=== PATIENT | male | born 1935 | race Caucasian/White ===

== ENCOUNTER 2019-08-10 10:11 | Inpatient (IN) ==
[2019-08-10] MEDS ORDERED: MORPHINE SULFATE 2 MG/ML DISP.SYRIN IV ONE (10:22)
[2019-08-10 10:46] LABS: Hematocrit 35.3 % (42.0-52.0); Hemoglobin 12.2 gm/dL (13.5-18.0); Mean Cell Volume 94.4 fl (78-100); Mean Corpuscular Hemoglobin 32.6 pg (27-31); Mean Corpuscular Hgb Conc 34.6 g/dl (32-36); Mean Platelet Volume 8.7 fl (8-11.3); Neutrophil # 5.9 K/mm3 (1.3-6.0); Neutrophil % 74.6 % (42-75.0); Platelet Count 171 K/mm3 (150-450); Red Blood Count 3.74 M/mm3 (4.7-6.0); Red Cell Distribution Width 12.7 % (11.5-14.0)
[2019-08-10 10:57] LABS: Prothrombin Time (Patient) 10.2 Seconds (9.1-10.7)
[2019-08-10 11:00] LABS: Albumin * 3.5 gm/dl (3.4-5.0); Anion Gap 10.3 mmol/L (6.8-13.8); BUN/Creatinine Ratio 8.4 (9.0-21.6); Bilirubin, Total 0.6 mg/dL (0.0-1.1); Ca. Corrected For Albumin 8.7 mg/dL (8.4-10.2); Calcium * 8.6 mg/dL (7.9-10.9); Carbon Dioxide 28.1 mmol/L (24-32.6); Potassium 4.4 mmol/L (3.4-4.6); Total Protein 6.8 gm/dL (6.2-8.2)
[2019-08-10 11:01] LABS: INR 1.03 INR (0.92-1.08); Partial Thrombolplastin Time 23.1 Seconds (24-32)
[2019-08-10 11:24] LABS: Urine Bilirubin Negative (NEGATIVE); Urine Blood Negative /ul (NEGATIVE); Urine Ketone Negative (NEGATIVE); Urine Nitrite Negative (NEGATIVE); Urine Protein Negative (NEGATIVE); Urine Urobilinogen Normal (NORMAL)
--- NOTE | 2019-08-10 11:26 | ERNOTE ---
Lower Extremity HPI - Narrative Date of Service: 08/10/19 - General Lower Extremities Pain: hip: left Time Seen by Provider: 08/10/19 10:13 Source: patient, EMS Exam Limitations: hard of hearing - Immun/Allergies/Home Medications Immunizations: IMMUNIZATION HX Immunizations Up to Date No History of Influenza Vaccine Yes Hx Pneumococcal Vaccination Yes Allergies/Adverse Reactions: Allergies Allergy/AdvReac Type Severity Reaction Status Date / Time No Known Allergies Allergy Unverified 08/10/19 10:28 Home Medications: HOME MEDICATIONS Calcium Carb/Vitamin D3/Vit K1 [Calcium-Vit D3-K1 650 mg Chew] 1 ea PO DAILY 08/10/19 [Last Taken Unknown] Lisinopril [Zestril] 10 mg PO DAILY 08/10/19 [Last Taken Unknown] Simvastatin 40 mg PO HS 08/10/19 [Last Taken Unknown] - History of Present Illness Narrative: patient present to ed with c/o left hip pain, tripped over curb unable to ambulate Occurred: just prior to arrival Location of Incident: other - street Method of Injury: Reports: fell, direct blow Reason for Fall: Reports: lost balance, tripped Loss of Consciousness: Reports: no loss of consciousness Review of Systems - Review of Systems Constitutional: Present: See HPI EYE: Present: no symptoms reported ENT: Present: no symptoms reported Respiratory: Present: no symptoms reported Cardiology: Present: no symptoms reported Gastrointestinal/Abdominal: Present: no symptoms reported Genitourinary: Present: no symptoms reported Musculoskeletal: Present: See HPI, joint pain, joint swelling Skin: Present: no symptoms reported Neurological: Present: no symptoms reported Endocrine: Present: no symptoms reported Hematologic/Lymphatic: Present: no symptoms reported Psych: Present: no symptoms reported All Other Systems: All systems neg except as marked Medical History (Last Updated 08/10/19 @ 10:38 by Mitul Mcguire RN) CKD (chronic kidney disease) GERD (gastroesophageal reflux disease) HTN (hypertension) Hyperlipemia Osteoporosis Paralysis of right hand Surgical History: Surgical History (Last Updated 08/10/19 @ 10:37 by Mitul Mcguire RN) H/O foot surgery "broke it years ago" Family History: Family History (Last Updated 08/10/19 @ 10:46 by Mitul Mcguire RN) Other Family history unobtainable Social History: (Last Updated 08/10/19 @ 10:39 by Mitul Mcguire RN) Tobacco: Smoking Status: Former smoker Alcohol: alcohol intake: never Substance Use: substance use type: does not use Physical Exam - Physical Exam General Appearance: Present: moderate distress, anxious Head Exam: Present: normal inspection, no evidence of injury Eye Exam: Normal inspection: bilateral, PERRL: bilateral, EOMI: bilateral Ears, Nose, Throat: Present: normal ENT inspection, normal pharynx Neck: Present: normal inspection, nontender Respiratory: Present: no respiratory distress, normal breath sounds, no accessory muscle use, chest nontender, lungs clear Cardiovascular/Chest: Present: regular rate, rhythm, no murmur, normal peripheral pulses Gastrointestinal/Abdominal: Present: normal bowel sounds, nontender, nondistended, soft, no organomegaly Back Exam: Present: normal inspection, normal range of motion, no CVA tenderness Extremity Exam: Present: normal except -, decreased range of motion, bony tenderness, other - pain over greater trochanter Neurological Exam: Present: alert, oriented, normal mood/affect, no motor/sensory deficits Skin Exam: Present: normal color, warm/dry Lymphatic Exam: Present: no adenopathy Progress - Date and Time Seen: Date and Time: 08/10/19 11:23 condition unchanged, discussed results of lab and x-rays with patient and , case discussed with dr vale, to admit to hospital - Results and Orders Patient's Lab Results:: I have reviewed the patient's lab results. - Vital Signs Patient's Vital Signs:: I have reviewed the patient's vital signs. Vital Signs: Vital Signs 08/10/19 10:11 08/10/19 10:27 Temperature 37.0 C Pulse Rate 79 88 Respiratory Rate 17 Blood Pressure 179/79 H O2 Sat by Pulse Oximetry 95 - EKG EKG #1 EKG: NSR - X-Ray X-Ray #1 X-Ray: chest Interpretation: Interp. by me - no acute process, left hip fracture - Progress/Reassessment Chief Complaint: Hip Pain/Injury Progress:: Unchanged Plan - Plan Plan: to admit to hospital Departure Clinical Impression: Hip fracture - Departure Disposition: Short Term Hospital Inpatient Condition: Fair Referrals: Yanelis Grove APN [Primary Care Provider] -
[2019-08-10 11:39] LABS: Urine Appearance Clear (CLEAR); Urine Bacteria TRACE; Urine Color Pale Yellow; Urine RBC None Seen /hpf (0-5); Urine WBC None Seen /hpf (0-5)
[2019-08-10 11:40] LABS: Urine Amorphous Sediment Moderate - 2+ (NONE-FEW)
[2019-08-10] MEDS: NORMAL SALINE 1,000 ML IV PRN ×2 (11:42→19:19)
[2019-08-10] MEDS: MORPHINE SULFATE 2 MG/ML DISP.SYRIN IV PRN ×2 (11:43→19:17)
--- NOTE | 2019-08-10 15:42 | CONS ---
[facility] - General Date of Service: 08/10/19 Narrative: Patient is hard of hearing and most of information was given by his . Patient states that they had recently parked the car when he got out he had tripped and fallen. He reported pain in the left hip and presented to our emergency department. X-rays obtained showed a displaced left subcapital hip fracture. He is admitted under Dr. Patel's service. At this time patient reports discomfort in the inguinal area on the left side. They report no other injuries. - History of Present Illness Timing/Duration: 4-6 hours Allergies/Adverse Reactions: Allergies No Known Allergies Allergy (Verified 08/10/19 13:40) Home Medications: Home Medications Medication Instructions Recorded Last Taken Calcium Carb/Vitamin D3/Vit K1 1 ea PO DAILY 08/10/19 Unknown [Calcium-Vit D3-K1 650 mg Chew] Lisinopril [Zestril] 10 mg PO DAILY 08/10/19 Unknown Simvastatin 40 mg PO HS 08/10/19 Unknown Medications - Medications Current Medications: Current Medications Sodium Chloride (Sodium Chloride 0.9%) 1,000 mls @ 125 mls/hr IV .Q8H PRN PRN Reason: HYDRATION Stop: 09/09/19 11:30 Last Admin: 08/10/19 11:42 Dose: 125 mls/hr Documented by: Morphine Sulfate (Morphine Sulfate) 2 mg IV Q1H PRN PRN Reason: Analgesia Stop: 09/09/19 11:31 Last Admin: 08/10/19 11:43 Dose: 2 mg Documented by: Physical Examination - Exam Narrative: Patient lying in bed. Does not appear in distress at this time. Logroll test reports minimal discomfort left inguinal area. I can flex his knee up to 90 degrees reports discomfort in the inguinal area on the left side. Reports no knee pain with range of motion on the left side. 1+ posterior tibial pulse. Reports sensation intact in the left lower extremity to light touch. Patient can actively plantarflex and dorsiflex his left ankle. X-rays reviewed show a displaced basicervical subcapital hip fracture. Vital Signs: Vital Signs - Last Taken Temp 36.9 C 08/10/19 14:14 Pulse 67 08/10/19 14:14 Resp 22 H 08/10/19 14:14 BP 130/61 08/10/19 14:14 Pulse Ox 93 08/10/19 14:14 O2 Oxygen Delivery Method Room Air - Results and Findings: Lab/Microbiology results last 24 hrs: Abnormal/Pending Laboratory Last 24 HRS 08/10/19 08/10/19 08/10/19 11:15 10:46 10:46 RBC Hgb Hct MCH Immature Gran % (Auto) Immature Gran # (Auto) Lymphocytes % Lymphocytes # PTT ([place]) 23.1 L Creatinine 1.90 H Est GFR (Non-Af Amer) 36 L BUN/Creatinine Ratio 8.4 L Amorphous Sediment Moderate - 2+ H 08/10/19 10:46 RBC 3.74 L Hgb 12.2 L Hct 35.3 L MCH 32.6 H Immature Gran % (Auto) 0.80 H Immature Gran # (Auto) 0.06 H Lymphocytes % 13.8 L Lymphocytes # 1.10 L PTT ([place]) Creatinine Est GFR (Non-Af Amer) BUN/Creatinine Ratio Amorphous Sediment - Assessments/Findings (1) Subcapital fracture of left hip Diagnosis(s): Discussed with patient and hemiarthroplasty. Risk discussed with patient and . Will obtain consents with nursing. Patient can have a normal diet tonight. He will be n.p.o. at midnight. Plan is to proceed with surgery tomorrow pending medical clearance. Problem: Acute (2) Hypertension Problem: Chronic (3) Hyperlipidemia Problem: Chronic (4) Chronic kidney disease Problem: Chronic
[2019-08-10] MEDS ORDERED: hydrALAZINE HCL 20 MG/ML VIAL IV PRN (17:10)
--- NOTE | 2019-08-10 17:12 | HP ---
Chief Complaint - Chief Complaint Date of Service: 08/10/19 Time of Service: 17:12 Chief Complaint: Left hip pain, trauma History of Present Illness: 83-year-old male with history of hypertension, hyperlipidemia, GERD, chronic kidney disease presented to the ER after ground-level fall while tripping after getting out of his car. Unable to ambulate due to left hip pain. X-ray in the ER showed him to have a displaced, mildly angulated subcapital femoral neck fracture. Ortho was consulted who plan to take him back for repair tomorrow, patient to made n.p.o. tonight at midnight. COVID testing negative. Patient's blood pressure and vital signs are stable. His lab work was unremarkable aside from a elevated creatinine and a GFR of 36. Unsure patient's baseline. There is no family available to discuss this with in the room. EKG showed normal sinus rhythm and his x-ray showed no acute cardiopulmonary process. Patient denies any pain right now but is extremely hard of hearing, unable to get much of a history out of him due to our communication deficit. He denied any chest pain, shortness of breath, headache, or vision changes though. Patient admitted for left hip repair tomorrow. Medical History (Last Reviewed 08/10/19 @ 13:33 by Naomi Babb RN) CKD (chronic kidney disease) GERD (gastroesophageal reflux disease) HTN (hypertension) Hyperlipemia Osteoporosis Paralysis of right hand Surgical History: Surgical History (Last Reviewed 08/10/19 @ 13:34 by Naomi Babb RN) H/O foot surgery "broke it years ago" Family History: Family History (Last Reviewed 08/10/19 @ 13:37 by Naomi Babb RN) Other Family history unobtainable Social History: (Last Reviewed 08/10/19 @ 13:40 by Naomi Babb RN) Social History: skilled nursing: No lives independently: Yes household members: spouse current occupational status: disabled Highest education level completed: 8th grade Service: No Tobacco: Smoking Status: Former smoker Alcohol: alcohol intake: never Substance Use: substance use type: does not use Review Of Systems (GEN) - Review of Systems Generalized/Overall Review: Absent: Weakness, Chills, Fever, Fatigue Cardiac: Absent: Chest Pain, Palpitations Abdominal: Absent: Nausea, Vomiting Genitourinary: Present: No Symptoms Reported Musculoskeletal: Present: Joint Pain Neurological: Present: No Symptoms Reported Skin: Present: No Symptoms Reported Immunizations: IMMUNIZATION HX Immunizations Up to Date No History of Influenza Vaccine Yes Hx Pneumococcal Vaccination Yes Allergies/Adverse Reactions: Allergies Allergy/AdvReac Type Severity Reaction Status Date / Time No Known Allergies Allergy Verified 08/10/19 13:40 Home Medications: HOME MEDICATIONS Calcium Carb/Vitamin D3/Vit K1 [Calcium-Vit D3-K1 650 mg Chew] 1 ea PO DAILY 08/10/19 [Last Taken Unknown] Lisinopril [Zestril] 10 mg PO DAILY 08/10/19 [Last Taken Unknown] Simvastatin 40 mg PO HS 08/10/19 [Last Taken Unknown] Exam - Exam Vital Signs: Vital Signs - Last Taken Temp 36.9 C 08/10/19 14:14 Pulse 67 08/10/19 14:14 Resp 22 H 08/10/19 14:14 BP 130/61 08/10/19 14:14 Pulse Ox 93 08/10/19 14:14 Constitutional: Present: Alert, Oriented x3, Mild distress - Left hip pain ENT Exam: Present: hard of hearing - Extremely hard of hearing. Absent: nasal congestion, nasal drainage Eye Exam: bilateral eye: normal inspection, EOMI Neck: Present: non-tender, supple Respiratory: Present: lungs clear, normal breath sounds Cardiovascular/Chest: Present: regular rate, rhythm, no murmur Peripheral Pulses: dorsalis-pedis (R): 2+, dorsalis-pedis (L): 2+ Abdomen: Present: soft, nontender Extremity: Present: normal range of motion - Pain with deep flexion of left hip, leg pain - Left knee pain Skin Exam: Present: normal color, warm/dry Neurologic: Present: no motor/sensory deficits Appearance: Present: appropriate appearance Eye contact: Present: cooperative Diagnostic Studies: Abnormal Lab Results 08/10/19 08/10/19 08/10/19 Range/Units 10:46 10:46 10:46 RBC 3.74 L (4.7-6.0) M/mm3 Hgb 12.2 L (13.5-18.0) gm/dL Hct 35.3 L (42.0-52.0) % MCH 32.6 H (27-31) pg Immature Gran % (Auto) 0.80 H (0.001-0.429) % Immature Gran # (Auto) 0.06 H (0.000-0.0310) K/mm3 Lymphocytes % 13.8 L (20-51) % Lymphocytes # 1.10 L (1.5-3.5) k/mm3 PTT ([place]) 23.1 L (24-32) Seconds Creatinine 1.90 H (0.4-1.4) mg/dL Est GFR (Non-Af Amer) 36 L (60-130) mL/min BUN/Creatinine Ratio 8.4 L (9.0-21.6) Amorphous Sediment (NONE-FEW) 08/10/19 Range/Units 11:15 RBC (4.7-6.0) M/mm3 Hgb (13.5-18.0) gm/dL Hct (42.0-52.0) % MCH (27-31) pg Immature Gran % (Auto) (0.001-0.429) % Immature Gran # (Auto) (0.000-0.0310) K/mm3 Lymphocytes % (20-51) % Lymphocytes # (1.5-3.5) k/mm3 PTT ([place]) (24-32) Seconds Creatinine (0.4-1.4) mg/dL Est GFR (Non-Af Amer) (60-130) mL/min BUN/Creatinine Ratio (9.0-21.6) Amorphous Sediment Moderate - 2+ H (NONE-FEW) Laboratory Results WBC 8.0 K/mm3 (4.0-10.5) 08/10/19 10:46 RBC 3.74 M/mm3 (4.7-6.0) L 08/10/19 10:46 Hgb 12.2 gm/dL (13.5-18.0) L 08/10/19 10:46 Hct 35.3 % (42.0-52.0) L 08/10/19 10:46 MCV 94.4 fl (78-100) 08/10/19 10:46 MCH 32.6 pg (27-31) H 08/10/19 10:46 MCHC 34.6 g/dl (32-36) 08/10/19 10:46 RDW 12.7 % (11.5-14.0) 08/10/19 10:46 Plt Count 171 K/mm3 (150-450) 08/10/19 10:46 MPV 8.7 fl (8-11.3) 08/10/19 10:46 Immature Gran % (Auto) 0.80 % (0.001-0.429) H 08/10/19 10:46 Immature Gran # (Auto) 0.06 K/mm3 (0.000-0.0310) H 08/10/19 10:46 Neutrophils % 74.6 % (42-75.0) 08/10/19 10:46 Lymphocytes % 13.8 % (20-51) L 08/10/19 10:46 Monocytes % 7.8 % (0.0-9) 08/10/19 10:46 Eosinophils % 2.6 % (0.0-3.0) 08/10/19 10:46 Basophils % 0.4 % (0.0-1.0) 08/10/19 10:46 Nucleated RBC % 0.0 k/mm3 (0-1) 08/10/19 10:46 Neutrophils # 5.9 K/mm3 (1.3-6.0) 08/10/19 10:46 Lymphocytes # 1.10 k/mm3 (1.5-3.5) L 08/10/19 10:46 Monocytes # 0.6 k/mm3 (0.0-1.0) 08/10/19 10:46 Eosinophils # 0.2 k/mm3 (0.0-0.7) 08/10/19 10:46 Absolute Basophils 0.0 k/mm3 (0.0-0.1) 08/10/19 10:46 PT 10.2 Seconds (9.1-10.7) 08/10/19 10:46 INR (Anticoag Therapy) 1.03 INR (0.92-1.08) 08/10/19 10:46 PTT ([place]) 23.1 Seconds (24-32) L 08/10/19 10:46 Sodium 133 mmol/L (132-142) 08/10/19 10:46 Plasma Sodium 133 mmol/L (130-142) 08/10/19 10:46 Potassium 4.4 mmol/L (3.4-4.6) 08/10/19 10:46 Chloride 99 mmol/L (97-106) 08/10/19 10:46 Carbon Dioxide 28.1 mmol/L (24-32.6) 08/10/19 10:46 Anion Gap 10.3 mmol/L (6.8-13.8) 08/10/19 10:46 BUN 16 mg/dL (6-23) 08/10/19 10:46 Creatinine 1.90 mg/dL (0.4-1.4) H 08/10/19 10:46 Est GFR (Non-Af Amer) 36 mL/min (60-130) L 08/10/19 10:46 BUN/Creatinine Ratio 8.4 (9.0-21.6) L 08/10/19 10:46 Random Glucose 107 mg/dL (70-110) 08/10/19 10:46 Calcium 8.6 mg/dL (7.9-10.9) 08/10/19 10:46 Calcium Adj for Albumin 8.7 mg/dL (8.4-10.2) 08/10/19 10:46 Total Bilirubin 0.6 mg/dL (0.0-1.1) 08/10/19 10:46 AST 20 U/L (0-48) 08/10/19 10:46 ALT 24 U/L (19-67) 08/10/19 10:46 Alkaline Phosphatase 57 U/L (50-170) 08/10/19 10:46 Total Protein 6.8 gm/dL (6.2-8.2) 08/10/19 10:46 Albumin 3.5 gm/dl (3.4-5.0) 08/10/19 10:46 Urine Color Pale yellow 08/10/19 11:15 Urine Appearance Clear (CLEAR) 08/10/19 11:15 Urine pH 6.0 pH (5.0-7.0) 08/10/19 11:15 Ur Specific [place] 1.010 SP.GR. (1.005-1.030) 08/10/19 11:15 Urine Protein Negative mg/dL (NEGATIVE) 08/10/19 11:15 Urine Glucose (UA) Negative mg/dL (NEGATIVE) 08/10/19 11:15 Urine Ketones Negative mg/dL (NEGATIVE) 08/10/19 11:15 Urine Blood Negative /ul (NEGATIVE) 08/10/19 11:15 Urine Nitrate Negative (NEGATIVE) 08/10/19 11:15 Urine Bilirubin Negative mg/dl (NEGATIVE) 08/10/19 11:15 Urine Urobilinogen Normal EU/dl (NORMAL) 08/10/19 11:15 Ur Leukocyte Esterase Negative /ul (NEGATIVE) 08/10/19 11:15 Urine RBC None seen /hpf (0-5) 08/10/19 11:15 Urine WBC None seen /hpf (0-5) 08/10/19 11:15 Ur Epithelial Cells None seen /hpf (0-5) 08/10/19 11:15 Amorphous Sediment Moderate - 2+ (NONE-FEW) H 08/10/19 11:15 Urine Bacteria Trace (NONE) 08/10/19 11:15 Urine Culture Comments Culture to follow 08/10/19 11:15 SARS-CoV-2 (PCR) Not detected (ND) 08/10/19 11:23 Assessment/Plan - Narrative Narrative: Plan is for patient taken back by Ortho tomorrow for repair. Patient to be made n.p.o. at midnight. Patient's lab work, EKG, chest x-ray all stable and there is no reason for him not to be cleared for surgery. Coagulation panel within normal limits. COVID testing was negative. Repeat BMP in the morning to monitor kidney function. Hydralazine ordered to be given as needed for systolic blood pressure greater than 160. Regular diet ordered for tonight. Lactated Ringer's ordered to be started at midnight once he is n.p.o. Pain fairly well controlled, morphine to be given PRN. SCDs to be worn while in bed for DVT prophylaxis. Nurse to call questions or concerns. - Assessment/Plan (1) Hip fracture Problem: Acute (2) Hypertension Problem: Chronic (3) Hyperlipidemia Problem: Chronic (4) Chronic kidney disease Problem: Chronic (5) Hard of hearing Problem: Acute
[2019-08-11] MEDS: MORPHINE SULFATE 2 MG/ML DISP.SYRIN IV PRN ×2 (00:35→08:21)
[2019-08-11] MEDS: NORMAL SALINE 1,000 ML IV PRN (03:29)
[2019-08-11] MEDS ORDERED: ceFAZolin SODIUM 1 GM VIAL IV PRN (06:00)
[2019-08-11] MEDS: RINGER'S SOLUTION,LACTATED 1,000 ML IV PRN ×4 (06:41→19:34)
[2019-08-11 07:26] LABS: Anion Gap 9.4 mmol/L (6.8-13.8); BUN/Creatinine Ratio 14.2 (9.0-21.6); Carbon Dioxide 26.4 mmol/L (24-32.6); Estimated Creat Clear 31.7; Potassium 4.8 mmol/L (3.4-4.6)
--- NOTE | 2019-08-11 09:04 | ANES ---
Anesthesia Pre Procedure Eval Vitals/Labs: Last Vital Signs Temp 37.4 C 08/11/19 06:32 Pulse 74 08/11/19 06:32 Resp 20 08/11/19 06:32 BP 137/62 08/11/19 06:32 Pulse Ox 94 08/11/19 06:32 HOME MEDICATIONS Calcium Carb/Vitamin D3/Vit K1 [Calcium-Vit D3-K1 650 mg Chew] 1 ea PO DAILY 08/10/19 [Last Taken Unknown] Lisinopril [Zestril] 10 mg PO DAILY 08/10/19 [Last Taken Unknown] Simvastatin 40 mg PO HS 08/10/19 [Last Taken Unknown] Allergies/Adverse Reactions: Allergies Allergy/AdvReac Type Severity Reaction Status Date / Time No Known Allergies Allergy Verified 08/10/19 13:40 - Planned Procedure Planned Procedure: l hip fracture Medication List Reviewed:: Yes Allergies Verified: Yes Medical History (Last Reviewed 08/11/19 @ 09:03 by Jt Butt CRNA) CKD (chronic kidney disease) GERD (gastroesophageal reflux disease) HTN (hypertension) Hyperlipemia Osteoporosis Paralysis of right hand Surgical History (Last Reviewed 08/11/19 @ 09:03 by Jt Butt CRNA) H/O foot surgery "broke it years ago" Family History (Last Reviewed 08/11/19 @ 09:03 by Jt Butt CRNA) Other Family history unobtainable - Family Anesthesia History Family History:: no untoward family reactions to anesthesia - Airway/Neck/Teeth Denture Type: Full upper, Full lower Neck Exam: full range of motion Mallampatti Score: 2 Thyromental (T-M) distance: > 6 cm Mandibulo Hyoid distance: > 3 cm - Respiratory Respiratory Physical: lungs clear Smoking Status: Never smoker Sleep Apnea currently treated: No Sleep Apnea by current assessment: No - Cardiovascular Cardiac History: hypertension, hyperlipidemia Tolerate Activity: Fair Heart Sounds: S1 & S2, Regular - Gastrointestinal NPO since: MN - Anesthesia Assessment and Plan ASA Class: PS, III Anesthesia Type Plan: Spinal Planned difficult intubation/equipment available: No
[2019-08-11] MEDS ORDERED: MIDAZOLAM HCL/PF 1 MG/ML VIAL ONE (10:42)
[2019-08-11] MEDS ORDERED: PROPOFOL VIAL IV ONE (10:42)
[2019-08-11] MEDS ORDERED: BUPIVACAINE HCL/PF 10 ML VIAL ONE (11:36)
[2019-08-11] MEDS ORDERED: MAG HYDROX/ALUMINUM HYD/SIMETH 30 ML UDC PO PRN (13:13)
[2019-08-11] MEDS ORDERED: MORPHINE SULFATE 2 MG/ML DISP.SYRIN IV PRN (13:13)
--- NOTE | 2019-08-11 13:19 | OR ---
Operative Report - Dictated Report Narrative: Date: 08/11/2019 Preoperative diagnosis: Closed left hip displaced femoral neck fracture. Postoperative diagnosis: Closed left hip displaced femoral neck fracture Procedure: Left hip cemented deborah-arthroplasty. Surgeon: Jeff Tran M.D. Manager Bilingual: Isaac Rodrigues PA-C (provided essential set of skilled, educated hands that assisted with transfer, positioning, prepping, draping, retraction, manipulation, placement of implants, irrigation, closure wounds, and application of dressings all of which could not be performed by the available surgical crew) Anesthesia: Spinal Complications: None Specimens: Bone. Estimated blood loss: 150 milliliters. Retained implants: Depuy Garrett size 4 basic cemented femoral stem. Size 50 millimeter outside diameter self-centering bipolar head with +5 millimeter cobalt chromium 28 mm femoral head. Indications: Mr. Schafer is a 83-year-old gentleman who sustained a ground-level fall. This patient was evaluated on the floor and found to have sustained a displaced femoral neck fracture. The risks and benefits were discussed with the patient as well as any power of pull socket assembler or family . The patient wished to proceed with surgical treatment. The risks, benefits, and alternatives discussed were , blood clots, bleeding, infection, nerve/tendon blood vessel/ injury, malposition of components, dislocation and/or instability of joint, intraoperative fracture, postoperative limited range of motion, persistent pain, failure of components, and need for additional procedures. Patient wished to proceed. Consent was obtained after answering all questions. Procedure: After marking the correct extremity on the floor, the patient was taken to the operating room. A timeout was performed. IV antibiotics consisting of Ancef were administered prior to the procedure. A spinal anesthetic was induced by anesthesia. A Lim catheter was inserted if not are in place. The patient was then transitioned to a lateral position on a well- padded pegboard. An axillary roll was placed. The head was in neutral position. The non-operative down leg was well-padded with SCD and MARU hose in place. The arms were supported and padded to protect from any undue pressure on the bony prominences and nerves. Well-padded anterior and posterior pelvic and chest posts were secured in order to maintain a stable position of the pelvis. This was placed so that the pelvis was perpendicular to the floor. The body was in line with the pelvis. Once it was felt that we had protected all the bony prominences and the patient was well secured with a safety belt as well, the leg was pre-scrubbed with alcohol, prepped and draped in a standard sterile fashion. A standard anterior lateral hip incision was marked out over the greater trochanter. Ioban drapes were then placed. The skin incision was then made. Sharp dissection with a scalpel utilizing cautery for hemostasis was carried out down to the gluteus and iliotibial band fascia. This was split in line with the skin incision. The greater trochanter bursa was excised. The anterior and posterior margins of the abductor tendon were identified. The anterior 1/2-1/3 of the tendon was tagged and reflected off the greater trochanter leaving a sleeve of tendon for repair at the completion of the case. This exposed the underlying hip joint capsule. An inverted T-type capsulotomy was made extending this up to the brim of the acetabulum. We encountered a hematoma at this point confirming an acute fracture as well as noted displacement of the femoral neck fracture. Using Homans to assist with elevation of the soft tissues off the anterior, superior, and inferior aspects of the femoral neck, the hip was then placed in a figure 4 position for a femoral neck cleanup cut to be made. With the leg in an externally rotated and adducted position, the cutting flag was utilized in order to michael for a standard femoral neck cut approximately a fingerbreadth above the level of the lesser trochanter. This was done while protecting the surrounding soft tissues with Homans. The femoral head was then removed and sized for guidance on the size of the bipolar head. It was noted that there was no significant loss of articular cartilage on both the femoral head and weightbearing portions of the acetabulum. We then returned the leg to the table and turned our attention to the acetabulum. While protecting the surrounding soft tissues, the labrum and remaining tissue in the fovea were excised using a scalpel and cautery. The acetabulum was then protected with a sponge while we returned our attention to the femur. With the leg in a figure 4 position utilizing Homans for soft tissue protection, a box cutting osteotome, followed by Patyey awl, followed by serial broaches were utilized in order to prepare the femur. It was found that a size 4 broach gave good axial and rotational stability. The proximal femur was visualized to ensure that there were no signs of fracture. A series of heads were trialed. It was found that a + 5 mm femoral head gave good overall stability. There was minimal longitudinal instability. Hip range of motion was able to reach full extension and external rotation to greater than 75 degrees prior to impingement along the posterior acetabulum. The hip was able to be flexed to greater than 90 degrees with internal rotation greater than 60 degrees prior to anterior impingement. The limb lengths were near equal based on comparison to the contralateral side . At this point it was felt these were the appropriately sized femoral components as well as neck and femoral head. The trial implants were removed. A canal cement plug was placed distally and the canal was thoroughly irrigated using pulsatile vacuum brush device. The canal was then thoroughly dried with a suction device. The cement was vacuum mixed per the topper press operator's instructions and placed into a cement gun. Cement was then placed in the dry irrigated femur using modern cementing technique as well as using a pressurizing device. The s tem was then placed in the appropriate version compared to the algaaciq anatomy and held in place while the cement cured and the extruded cement was removed. Once the cement was fully cured, we ensured that the stem was stable and that there were no signs of fracture. The remaining extruded cement was removed, and the joint and the capsule were thoroughly evaluated to ensure there are no cement fragments. The final femoral bipolar head was then impacted in the place. The hip was then reduced and seated completely. The capsule was repaired with a single interrupted #1 Vicryl. The abductor tendon was repaired to the greater trochanter utilizing #5 Ethibond through drill holes. This was oversewn with #1 Vicryl. The fascia was closed with interrupted #1 Vicryl and Stratafix barbed suture. The wounds were thoroughly irrigated as we closed in layers. The deep and subcutaneous fat layers were closed with 0 Vicryl. The subcutaneous tissue was closed with a running 3-0 Vicryl and the skin with danielle. All sponge, needle, blade, and instrument counts were correct prior to closing the wounds. Sterile dressings consisting of Xeroform, 4 x 4's, ABD, and tape were applied. The patient was awoken and transferred to her hospital bed and then to the postanesthesia care unit in stable condition. Postoperative condition: The plan is to return to the medical/surgical inpatient floor postoperatively. Postoperatively 24 hours of IV antibiotics, pain control, physical therapy, occupational therapy, and medical comanagement will be utilized. Patient will be weightbearing as tolerated with anterior hip precautions. Postoperative films will be obtained in the recovery room.
--- NOTE | 2019-08-11 13:29 | ANES ---
Post Anesthesia Discharge - Transfer of Care Transfer of Care handoff given to nurse: Yes - Discharge from PACU Discharge from PACU when meets criteria: Yes - Comfortable in PACU.
[2019-08-11] MEDS: ceFAZolin SODIUM 1 GM in DEXTROSE 5 % IN WATER 100 ML IV SCH ×4 (15:34→20:24)
[2019-08-11] MEDS: HYDROcodone/ACETAMINOPHEN 1 EACH TABLET PO PRN ×2 (16:37→20:24)
--- NOTE | 2019-08-11 18:39 | PN ---
Subjective - Date and Time Seen Date: 08/11/19 Time: 14:26 Subjective Narrative: Patient seen following surgery, resting comfortably. Denies any pain at this time. Vital signs are stable and is afebrile. Surgery went well Objective - Review of Systems Generalized/Overall Review: Denies: Weakness, Chills, Fever EENTM: Reports: No Symptoms Reported Respiratory: Denies: Cough, Shortness of Breath Cardiac: Denies: Chest Pain, Palpitations Abdominal: Reports: No Symptoms Reported Genitourinary Symptoms: Reports: No Symptoms Reported Musculoskeletal Complaints: Reports: Joint Pain - Minimal, left hip Neurological: Reports: No Symptoms Reported Skin: Reports: No Symptoms Reported - Vitals Vitals: Last Vital Signs Temp 36.3 C 08/11/19 17:51 Pulse 103 H 08/11/19 17:51 Resp 16 08/11/19 17:51 BP 141/65 08/11/19 17:51 Pulse Ox 100 08/11/19 17:51 - Abnormal Lab Findings Abnormal Lab Findings: Abnormal Lab Results 08/11/19 Range/Units 07:10 Potassium 4.8 H (3.4-4.6) mmol/L Creatinine 1.62 H (0.4-1.4) mg/dL Est GFR (Non-Af Amer) 44 L D (60-130) mL/min - EKG/Xray Findings EKG: NSR - Exam Constitutional: Present: Alert, Oriented x3, Elderly ENT Exam: Present: hard of hearing Respiratory: Present: lungs clear, normal breath sounds Cardiovascular/Chest: Present: regular rate, rhythm, no murmur Extremity: Present: leg pain - Incision covered by bandage, clean and dry Skin Exam: Present: normal color, warm/dry Appearance: Present: appropriate appearance, appropriate insight Eye contact: Present: cooperative, good eye contact Cauti Physician Documentation - Urinary Catheter Management Coude Date of Insertion: 08/10/19 Time of Insertion: 11:21 Assessment/Plan Plan Narrative: Patient went back for surgery today to repair left hip fracture. Patient tolerated well and is currently resting comfortably. Pain medication ordered for patient. Will repeat lab work in the morning. Restart his blood pressure medications, will begin hydralazine as needed for as needed for systolic pressures greater than 160. Restarted diet. Patient currently saline locked following fluids ordered by Ortho. Pain appears well controlled, no changes to be made for this at this time. Patient currently on [place] Lovenox for DVT prophylaxis. Nurse to call with questions or concerns. - Problems/Diagnosis (1) Hip fracture Problem: Acute (2) Hypertension Problem: Chronic (3) Hyperlipidemia Problem: Chronic (4) Chronic kidney disease Problem: Chronic (5) Hard of hearing Problem: Acute
[2019-08-11] MEDS: SIMVASTATIN 40 MG TABLET PO SCH (20:24)
[2019-08-11] MEDS: SENNOSIDES/DOCUSATE SODIUM 1 TAB TABLET PO SCH (20:24)
[2019-08-12] MEDS: ceFAZolin SODIUM 1 GM in DEXTROSE 5 % IN WATER 100 ML IV SCH ×2 (02:45)
[2019-08-12] MEDS: HYDROcodone/ACETAMINOPHEN 1 EACH TABLET PO PRN ×3 (03:10→21:01)
[2019-08-12] MEDS ORDERED: ROPIVACAINE HCL/PF 100 MG, EPINEPHrine 0.2 MG, KETOROLAC TROMETHAMINE 30 MG in NORMAL S... IJ PRN (06:00)
[2019-08-12] MEDS ORDERED: TRANEXAMIC ACID 1,000 MG in NORMAL SALINE 100 ML IV PRN (06:00)
[2019-08-12 06:16] LABS: Hematocrit 27.4 % (42.0-52.0); Hemoglobin 9.3 gm/dL (13.5-18.0); Mean Cell Volume 94.8 fl (78-100); Mean Corpuscular Hemoglobin 32.2 pg (27-31); Mean Corpuscular Hgb Conc 33.9 g/dl (32-36); Mean Platelet Volume 8.4 fl (8-11.3); Platelet Count 122 K/mm3 (150-450); Red Blood Count 2.89 M/mm3 (4.7-6.0); Red Cell Distribution Width 12.9 % (11.5-14.0); White Blood Count 9.1 K/mm3 (4.0-10.5)
[2019-08-12 06:26] LABS: Anion Gap 8.1 mmol/L (6.8-13.8); BUN/Creatinine Ratio 11.3 (9.0-21.6); Calcium * 7.7 mg/dL (7.9-10.9); Carbon Dioxide 27.6 mmol/L (24-32.6); Potassium 4.7 mmol/L (3.4-4.6)
[2019-08-12] MEDS: LISINOPRIL 10 MG TABLET PO SCH (08:54)
--- NOTE | 2019-08-12 11:12 | PN ---
Subjective - Date and Time Seen Date: 08/12/19 Time: 11:11 Subjective Narrative: Subjective: Reports mild pain. Was able to get to the chair with therapy. Pain is tolerable. Voiding without any complications. Tolerating by mouth intake. Denies any nausea or vomiting. Denies calf pain. Slept well. Physical exam: Alert and oriented to person, place and time Left lower extremity: Palpable dorsalis pedis pulse. Sensation grossly intact to light touch. Dressings clean and dry. Able to flex and extend ankle and toes. No excessive drainage. Calf and thigh are soft and nontender. Assessment: Postop day 1 status post left hip deborah-arthroplasty. Plan: Due to the need for pain control, post-operative limited mobility, protection of the surgical site and joint, monitoring of the wound, and the management of chronic medical conditions, he requires continued inpatient care. Continue with physical and occupational therapy weightbearing as tolerated. Continue with anticoagulation - he will need 7 days of Lovenox followed by daily aspirin 325 mg. 24 hours postoperative prophylactic antibiotics. Pain control with goal to rely on oral medications. Continue bowel regimen. Will need 6 weeks with walker or assitive device to protect joint while ambulating during the recovery process. Discharge planning. Objective - Vitals Vitals: Last Vital Signs Temp 37.4 C 08/12/19 10:00 Pulse 83 08/12/19 10:00 Resp 16 08/12/19 10:00 BP 131/58 08/12/19 10:00 Pulse Ox 93 08/12/19 10:00 - Abnormal Lab Findings Abnormal Lab Findings: Abnormal Lab Results 08/12/19 08/12/19 Range/Units 06:10 06:10 RBC 2.89 L (4.7-6.0) M/mm3 Hgb 9.3 L (13.5-18.0) gm/dL Hct 27.4 L (42.0-52.0) % MCH 32.2 H (27-31) pg Plt Count 122 L (150-450) K/mm3 Sodium 131 L (132-142) mmol/L Potassium 4.7 H (3.4-4.6) mmol/L Creatinine 1.51 H (0.4-1.4) mg/dL Est GFR (Non-Af Amer) 47 L (60-130) mL/min Random Glucose 129 H (70-110) mg/dL Calcium 7.7 L (7.9-10.9) mg/dL Cauti Physician Documentation - Urinary Catheter Management Coude Date of Insertion: 08/10/19 Time of Insertion: 11:21 Date of Removal: 08/12/19 Time of Removal: 05:00 Assessment/Plan - Problems/Diagnosis (1) Subcapital fracture of left hip Problem: Acute Qualifiers: Encounter type: subsequent encounter Fracture type: closed Fracture healing: with routine healing Qualified Code(s): S72.012D - Unspecified intracapsular fracture of left femur, subsequent encounter for closed fracture with routine healing
[2019-08-12] MEDS: MAGNESIUM HYDROXIDE 30 ML UDC PO PRN (11:25)
[2019-08-12] MEDS: ENOXAPARIN SODIUM 40 MG/0.4 ML SYRG SC SCH (11:25)
--- NOTE | 2019-08-12 13:52 | PN ---
Subjective - Date and Time Seen Date: 08/12/19 Time: 13:40 Subjective Narrative: I am comfortable for now only mild discomfort of left hip with movement Objective Objective Narrative: 83-year-old male status post left hemiarthroplasty postsurgical day #2 was evaluated at bedside was found to be afebrile and in no acute distress. Patient is having an uneventful postoperative period. He was evaluated by the orthopedic surgeon who recommended physical and occupational therapy and ongoing anticoagulation. Patient tolerated the surgery without any issues and no adverse events were reported. He is currently comfortable and reports his pain being adequately controlled. Labs this morning demonstrate mildly elevated potassium levels but we will just monitor for now and repeat labs in the morning. - Review of Systems Generalized/Overall Review: Reports: No Symptoms Reported EENTM: Reports: No Symptoms Reported Respiratory: Reports: No Symptoms Reported Cardiac: Reports: No Symptoms Reported Abdominal: Reports: No Symptoms Reported Genitourinary Symptoms: Reports: No Symptoms Reported Musculoskeletal Complaints: Reports: Joint Pain - Left hip pain Neurological: Reports: No Symptoms Reported Skin: Reports: No Symptoms Reported Endocrine: Reports: No Symptoms Reported - Vitals Vitals: Last Vital Signs Temp 37.4 C 08/12/19 10:00 Pulse 83 08/12/19 10:00 Resp 16 08/12/19 10:00 BP 131/58 08/12/19 10:00 Pulse Ox 93 08/12/19 10:00 - Abnormal Lab Findings Abnormal Lab Findings: Abnormal Lab Results 08/12/19 08/12/19 Range/Units 06:10 06:10 RBC 2.89 L (4.7-6.0) M/mm3 Hgb 9.3 L (13.5-18.0) gm/dL Hct 27.4 L (42.0-52.0) % MCH 32.2 H (27-31) pg Plt Count 122 L (150-450) K/mm3 Sodium 131 L (132-142) mmol/L Potassium 4.7 H (3.4-4.6) mmol/L Creatinine 1.51 H (0.4-1.4) mg/dL Est GFR (Non-Af Amer) 47 L (60-130) mL/min Random Glucose 129 H (70-110) mg/dL Calcium 7.7 L (7.9-10.9) mg/dL - Exam Constitutional: Present: Alert, Cooperative, Well developed, Well nourished, No distress, Elderly ENT Exam: Present: normal ENT inspection, pharynx normal, TMs normal, hard of hearing Neck: Present: non-tender, full range of motion, supple, normal inspection, trachea midline Breasts: Present: Exam deferred Respiratory: Present: chest non-tender, lungs clear, normal breath sounds, no respiratory distress, no accessory muscle use Cardiovascular/Chest: Present: normal peripheral pulses, regular rate, rhythm, no chest tenderness, no edema, no gallop, no JVD, no murmur, no rub Abdomen: Present: Normal bowel sounds, soft, nontender, nondistended, no rebound tenderness, no hepatospenomegaly, no masses /Rectal: Present: Exam deferred Extremity: Present: no pedal edema, no calf tenderness, normal capillary refill, pelvis stable, other - Left hip covered by dry clean dressing, there is no sign of infection or bleeding. Skin Exam: Present: normal color, warm/dry, no cyanosis Lymphatic: Present: no adenopathy Neurologic: Present: vehicle body sander II-XII nml as tested, normal cerebellar test, no motor/sensory deficits, alert, normal mood/affect, oriented x 3 Appearance: Present: appropriate appearance, appropriate insight, neat, no memory impairment Eye contact: Present: cooperative Thoughts: Present: normal thought pattern, no apparent hallucination Cauti Physician Documentation - Urinary Catheter Management Coude Date of Insertion: 08/10/19 Time of Insertion: 11:21 Date of Removal: 08/12/19 Time of Removal: 05:00 Assessment/Plan Plan Narrative: We will continue to monitor patient closely, and hospital PT and OT has been ordered and repeat labs have been ordered for tomorrow morning. - Problems/Diagnosis (1) History of left hip hemiarthroplasty Problem: Acute (2) Hip fracture Problem: Acute (3) Hypertension Problem: Chronic (4) Chronic kidney disease Problem: Chronic
[2019-08-12] MEDS: SENNOSIDES/DOCUSATE SODIUM 1 TAB TABLET PO SCH (20:54)
[2019-08-12] MEDS: SIMVASTATIN 40 MG TABLET PO SCH (20:54)
[2019-08-13 06:59] LABS: Hematocrit 26.1 % (42.0-52.0); Hemoglobin 8.9 gm/dL (13.5-18.0); Mean Corpuscular Hemoglobin 32.7 pg (27-31); Mean Corpuscular Hgb Conc 34.1 g/dl (32-36); Mean Platelet Volume 9.5 fl (8-11.3); Neutrophil # 7.4 K/mm3 (1.3-6.0); Neutrophil % 75.3 % (42-75.0); Platelet Count 142 K/mm3 (150-450); Red Blood Count 2.72 M/mm3 (4.7-6.0); Red Cell Distribution Width 12.9 % (11.5-14.0); White Blood Count 9.8 K/mm3 (4.0-10.5)
[2019-08-13 07:13] LABS: Albumin * 2.6 gm/dl (3.4-5.0); Anion Gap 8.5 mmol/L (6.8-13.8); BUN/Creatinine Ratio 10.8 (9.0-21.6); Bilirubin, Total 1.2 mg/dL (0.0-1.1); Ca. Corrected For Albumin 8.9 mg/dL (8.4-10.2); Calcium * 8.1 mg/dL (7.9-10.9); Carbon Dioxide 26.9 mmol/L (24-32.6); Potassium 4.4 mmol/L (3.4-4.6); Total Protein 5.9 gm/dL (6.2-8.2)
[2019-08-13] MEDS: HYDROcodone/ACETAMINOPHEN 1 EACH TABLET PO PRN ×2 (07:30→18:06)
[2019-08-13] MEDS: MAGNESIUM HYDROXIDE 30 ML UDC PO PRN (07:30)
[2019-08-13] MEDS: LISINOPRIL 10 MG TABLET PO SCH (09:22)
[2019-08-13] MEDS: ENOXAPARIN SODIUM 40 MG/0.4 ML SYRG SC SCH (11:56)
[2019-08-13] MEDS ORDERED: NORMAL SALINE 1,000 ML IV ONE (12:06)
--- NOTE | 2019-08-13 12:17 | PN ---
Subjective - Date and Time Seen Date: 08/13/19 Time: 12:10 Subjective Narrative: I am comfortable. Objective Objective Narrative: 83-year-old male status post left hemiarthroplasty postsurgical day #3 was evaluated at bedside was found to be afebrile and in no acute distress. Patient had an uneventful night, there were no adverse events reported by nursing staff. He appears comfortable and reports adequate control of his pain. He is currently undergoing in-hospital OT and PT as ordered by his orthopedic surgeon and discharge planning most likely to a rehab facility is underway. - Review of Systems Generalized/Overall Review: Reports: No Symptoms Reported EENTM: Reports: No Symptoms Reported Respiratory: Reports: No Symptoms Reported Cardiac: Reports: No Symptoms Reported Abdominal: Reports: No Symptoms Reported Genitourinary Symptoms: Reports: No Symptoms Reported Musculoskeletal Complaints: Reports: No Symptoms Reported, Other - Recently repaired left hip fracture Neurological: Reports: No Symptoms Reported Skin: Reports: No Symptoms Reported Endocrine: Reports: No Symptoms Reported - Vitals Vitals: Last Vital Signs Temp 37.0 C 08/13/19 10:00 Pulse 80 08/13/19 10:00 Resp 18 08/13/19 10:00 BP 145/66 08/13/19 10:00 Pulse Ox 94 08/13/19 10:00 - Abnormal Lab Findings Abnormal Lab Findings: Abnormal Lab Results 08/13/19 08/13/19 Range/Units 06:15 06:15 RBC 2.72 L (4.7-6.0) M/mm3 Hgb 8.9 L (13.5-18.0) gm/dL Hct 26.1 L (42.0-52.0) % MCH 32.7 H (27-31) pg Plt Count 142 L (150-450) K/mm3 Immature Gran # (Auto) 0.04 H (0.000-0.0310) K/mm3 Neutrophils % 75.3 H (42-75.0) % Lymphocytes % 11.3 L (20-51) % Monocytes % 9.9 H (0.0-9) % Neutrophils # 7.4 H (1.3-6.0) K/mm3 Lymphocytes # 1.10 L (1.5-3.5) k/mm3 Sodium 129 L (132-142) mmol/L Plasma Sodium 129 L (130-142) mmol/L Creatinine 1.58 H (0.4-1.4) mg/dL Est GFR (Non-Af Amer) 45 L (60-130) mL/min Random Glucose 111 H (70-110) mg/dL Total Bilirubin 1.2 H (0.0-1.1) mg/dL AST 54 H (0-48) U/L Alkaline Phosphatase 48 L (50-170) U/L Total Protein 5.9 L (6.2-8.2) gm/dL Albumin 2.6 L (3.4-5.0) gm/dl - Exam Constitutional: Present: Alert, Cooperative, Well developed, Well nourished, No distress, Elderly ENT Exam: Present: normal ENT inspection, hearing grossly normal, pharynx normal Neck: Present: non-tender, full range of motion, supple, normal inspection, trachea midline Breasts: Present: Exam deferred Respiratory: Present: chest non-tender, lungs clear, normal breath sounds, no respiratory distress, no accessory muscle use Cardiovascular/Chest: Present: normal peripheral pulses, regular rate, rhythm, no chest tenderness, no edema, no gallop, no JVD, no murmur, no rub Abdomen: Present: Normal bowel sounds, soft, nontender, nondistended, no rebound tenderness, no hepatospenomegaly, no masses, obese /Rectal: Present: Exam deferred Extremity: Present: non-tender, no pedal edema, no calf tenderness, normal capillary refill, other - Left hip covered by dry clean dressing Skin Exam: Present: normal color, warm/dry, no cyanosis Lymphatic: Present: no adenopathy Neurologic: Present: mail room clerk II-XII nml as tested, no motor/sensory deficits, alert, normal mood/affect Appearance: Present: appropriate appearance, appropriate insight, neat Eye contact: Present: cooperative, good eye contact, other - Apparent dysarthria Thoughts: Present: no apparent hallucination Cauti Physician Documentation - Urinary Catheter Management Coude Urethral Indwelling: No Date of Insertion: 08/10/19 Time of Insertion: 11:21 Date of Removal: 08/12/19 Time of Removal: 05:00 Assessment/Plan Plan Narrative: No changes to the current plan is necessary. - Problems/Diagnosis (1) History of left hip hemiarthroplasty Problem: Acute (2) Hip fracture Problem: Acute (3) Hypertension Problem: Chronic (4) Chronic kidney disease Problem: Chronic
[2019-08-13] MEDS: SIMVASTATIN 40 MG TABLET PO SCH (20:03)
[2019-08-13] MEDS: SENNOSIDES/DOCUSATE SODIUM 1 TAB TABLET PO SCH (20:03)
[2019-08-14 06:38] LABS: Hematocrit 25.3 % (42.0-52.0); Hemoglobin 8.7 gm/dL (13.5-18.0); Mean Cell Volume 94.4 fl (78-100); Mean Corpuscular Hemoglobin 32.5 pg (27-31); Mean Corpuscular Hgb Conc 34.4 g/dl (32-36); Mean Platelet Volume 9.1 fl (8-11.3); Neutrophil # 6.8 K/mm3 (1.3-6.0); Neutrophil % 78.2 % (42-75.0); Platelet Count 156 K/mm3 (150-450); Red Blood Count 2.68 M/mm3 (4.7-6.0); Red Cell Distribution Width 12.6 % (11.5-14.0); White Blood Count 8.7 K/mm3 (4.0-10.5)
[2019-08-14 07:07] LABS: Albumin * 2.5 gm/dl (3.4-5.0); Anion Gap 11.1 mmol/L (6.8-13.8); BUN/Creatinine Ratio 12.8 (9.0-21.6); Bilirubin, Total 1.2 mg/dL (0.0-1.1); Ca. Corrected For Albumin 9.1 mg/dL (8.4-10.2); Calcium * 8.2 mg/dL (7.9-10.9); Carbon Dioxide 26.3 mmol/L (24-32.6); Potassium 4.4 mmol/L (3.4-4.6); Total Protein 6.1 gm/dL (6.2-8.2)
[2019-08-14] MEDS: HYDROcodone/ACETAMINOPHEN 1 EACH TABLET PO PRN ×2 (07:28→15:26)
[2019-08-14] MEDS: LISINOPRIL 10 MG TABLET PO SCH (08:52)
[2019-08-14] MEDS: CALCIUM CARBONATE/VITAMIN D3 1 TAB TABLET PO SCH (08:52)
[2019-08-14] MEDS: ENOXAPARIN SODIUM 40 MG/0.4 ML SYRG SC SCH (11:14)
[2019-08-14] MEDS: SIMVASTATIN 40 MG TABLET PO SCH (20:18)
[2019-08-14] MEDS: SENNOSIDES/DOCUSATE SODIUM 1 TAB TABLET PO SCH (20:18)
--- NOTE | 2019-08-14 21:03 | PN ---
Subjective - Date and Time Seen Date: 08/14/19 Time: 11:32 Subjective Narrative: Patient feeling well this morning. Denies any pain in his leg. Patient still hard of hearing and difficulty with communication. Vital signs are stable patient was afebrile overnight. Patient sodium has dropped though since admission otherwise he would have been prepared for discharge today. Objective - Review of Systems Generalized/Overall Review: Denies: Weakness, Chills, Fever EENTM: Reports: No Symptoms Reported Respiratory: Denies: Cough, Shortness of Breath Cardiac: Denies: Chest Pain, Palpitations Abdominal: Denies: Nausea, Vomiting, Abdominal Pain Genitourinary Symptoms: Reports: No Symptoms Reported Musculoskeletal Complaints: Reports: Joint Swelling - Vitals Vitals: Last Vital Signs Temp 37.5 C 08/14/19 18:19 Pulse 90 08/14/19 18:19 Resp 18 08/14/19 18:19 BP 110/56 08/14/19 18:19 Pulse Ox 96 08/14/19 18:19 - Abnormal Lab Findings Abnormal Lab Findings: Abnormal Lab Results 08/14/19 08/14/19 Range/Units 06:10 06:10 RBC 2.68 L (4.7-6.0) M/mm3 Hgb 8.7 L (13.5-18.0) gm/dL Hct 25.3 L (42.0-52.0) % MCH 32.5 H (27-31) pg Immature Gran % (Auto) 0.60 H (0.001-0.429) % Immature Gran # (Auto) 0.05 H (0.000-0.0310) K/mm3 Neutrophils % 78.2 H (42-75.0) % Lymphocytes % 8.5 L (20-51) % Monocytes % 10.4 H (0.0-9) % Neutrophils # 6.8 H (1.3-6.0) K/mm3 Lymphocytes # 0.74 L (1.5-3.5) k/mm3 Sodium 127 L (132-142) mmol/L Plasma Sodium 127 L (130-142) mmol/L Chloride 94 L (97-106) mmol/L Creatinine 1.49 H (0.4-1.4) mg/dL Est GFR (Non-Af Amer) 48 L (60-130) mL/min Total Bilirubin 1.2 H (0.0-1.1) mg/dL AST 55 H (0-48) U/L Total Protein 6.1 L (6.2-8.2) gm/dL Albumin 2.5 L (3.4-5.0) gm/dl - Exam Constitutional: Present: Alert, Oriented x3 ENT Exam: Present: hard of hearing - Very. Absent: nasal congestion, nasal drainage Respiratory: Present: lungs clear, normal breath sounds Cardiovascular/Chest: Present: regular rate, rhythm, no murmur Abdomen: Present: Normal bowel sounds, soft, nontender - Cool movement was a fast Extremity: Present: leg pain Skin Exam: Present: normal color, warm/dry Appearance: Present: appropriate appearance Eye contact: Present: cooperative, good eye contact Cauti Physician Documentation - Urinary Catheter Management Coude Urethral Indwelling: No Date of Insertion: 08/10/19 Time of Insertion: 11:21 Date of Removal: 08/12/19 Time of Removal: 05:00 Assessment/Plan Plan Narrative: Patient went make sense postop day 3 status post left femur fracture repair, doing well pain well controlled. Patient's been released from orthopedic care to be discharged to care facility. Patient would have been discharged home today other than his low sodium, will fluid restrict him to 1500 cc and stop normal saline which is still being administered. Repeat BMP in the morning. He is doing well, blood pressure well controlled on current medications. Patient tolerating diet wellm no concerns at this time with N/V/D/C Pain appears well controlled, no changes to be made for this at this time. Patient currently on [place], pain well controlled Lovenox for DVT prophylaxis. Nurse to call with questions or concerns. Likely home tomorrow - Problems/Diagnosis (1) Hip fracture Problem: Acute (2) Hypertension Problem: Chronic (3) Hyperlipidemia Problem: Chronic (4) Chronic kidney disease Problem: Chronic (5) Hard of hearing Problem: Acute
[2019-08-15 06:42] LABS: Anion Gap 11.1 mmol/L (6.8-13.8); Calcium * 7.9 mg/dL (7.9-10.9); Carbon Dioxide 27.4 mmol/L (24-32.6); Estimated Creat Clear 29.9; Potassium 4.5 mmol/L (3.4-4.6)
[2019-08-15] MEDS: LISINOPRIL 10 MG TABLET PO SCH (08:11)
[2019-08-15] MEDS: CALCIUM CARBONATE/VITAMIN D3 1 TAB TABLET PO SCH (08:11)
--- NOTE | 2019-08-15 09:19 | PN ---
Subjective - Date and Time Seen Date: 08/15/19 Time: 09:19 Objective - Vitals Vitals: Last Vital Signs Temp 36.9 C 08/15/19 06:33 Pulse 73 08/15/19 08:11 Resp 18 08/15/19 06:33 BP 137/57 08/15/19 08:11 Pulse Ox 94 08/15/19 06:33 - Abnormal Lab Findings Abnormal Lab Findings: Abnormal Lab Results 08/15/19 Range/Units 06:05 Sodium 129 L (132-142) mmol/L Plasma Sodium 129 L (130-142) mmol/L Chloride 95 L (97-106) mmol/L Creatinine 1.72 H (0.4-1.4) mg/dL Est GFR (Non-Af Amer) 41 L (60-130) mL/min Random Glucose 111 H (70-110) mg/dL Cauti Physician Documentation - Urinary Catheter Management Coude Urethral Indwelling: No Date of Insertion: 08/10/19 Time of Insertion: 11:21 Date of Removal: 08/12/19 Time of Removal: 05:00 Assessment/Plan - Problems/Diagnosis (1) Hip fracture Problem: Acute (2) Hypertension Problem: Chronic (3) Hyperlipidemia Problem: Chronic (4) Chronic kidney disease Problem: Chronic (5) Hard of hearing Problem: Acute
[2019-08-15] MEDS: ENOXAPARIN SODIUM 40 MG/0.4 ML SYRG SC SCH (11:35)
[2019-08-15] MEDS: ACETAMINOPHEN 500 MG TABLET PO PRN (11:35)
[2019-08-15] MEDS: SIMVASTATIN 40 MG TABLET PO SCH (20:59)
[2019-08-15] MEDS: SENNOSIDES/DOCUSATE SODIUM 1 TAB TABLET PO SCH (20:59)
--- NOTE | 2019-08-15 22:17 | PN ---
Subjective - Date and Time Seen Date: 08/15/19 Time: 12:13 Subjective Narrative: Patient currently doing well without any acute events overnight. Vital signs are stable and is afebrile. Pain well controlled. Currently waiting on placement as SNF that initially was accepted to unable to take up at this time. Awaiting to hear back from others. Sodium returned to 129 this morning. Repeat lab work in the morning. Objective - Review of Systems Generalized/Overall Review: Denies: Weakness, Chills, Fever EENTM: Reports: No Symptoms Reported Respiratory: Denies: Cough, Shortness of Breath Abdominal: Denies: Nausea, Vomiting, Abdominal Pain Genitourinary Symptoms: Reports: No Symptoms Reported Musculoskeletal Complaints: Reports: Other - Left lower extremity pain, minimal with movement Neurological: Reports: No Symptoms Reported Skin: Reports: No Symptoms Reported Endocrine: Reports: No Symptoms Reported - Vitals Vitals: Last Vital Signs Temp 37.1 C 08/15/19 18:47 Pulse 74 08/15/19 18:47 Resp 18 08/15/19 18:47 BP 139/59 08/15/19 18:47 Pulse Ox 97 08/15/19 18:47 - Abnormal Lab Findings Abnormal Lab Findings: Abnormal Lab Results 08/15/19 Range/Units 06:05 Sodium 129 L (132-142) mmol/L Plasma Sodium 129 L (130-142) mmol/L Chloride 95 L (97-106) mmol/L Creatinine 1.72 H (0.4-1.4) mg/dL Est GFR (Non-Af Amer) 41 L (60-130) mL/min Random Glucose 111 H (70-110) mg/dL - Exam Constitutional: Present: Alert, Oriented x3, Elderly ENT Exam: Present: hard of hearing Respiratory: Present: lungs clear, normal breath sounds Cardiovascular/Chest: Present: regular rate, rhythm, no murmur Extremity: Present: lower extremity edema - Trace, left lower extremity to above ankle, leg pain Skin Exam: Present: normal color, warm/dry, other - Incision clean dry and intact, dressing clean Appearance: Present: appropriate appearance, appropriate insight Eye contact: Present: cooperative, good eye contact Thoughts: Present: normal thought pattern, normal mood /affect Cauti Physician Documentation - Urinary Catheter Management Coude Urethral Indwelling: No Date of Insertion: 08/10/19 Time of Insertion: 11:21 Date of Removal: 08/12/19 Time of Removal: 05:00 Assessment/Plan Plan Narrative: Patient went make sense postop day 4 status post left femur fracture repair, doing well pain well controlled. Patient's been released from orthopedic care to be discharged to care facility. Sodium Improved this morning, will continue to restrict him to 1500 cc free fluid daily for the time being. Repeat BMP in the morning. He is doing well, blood pressure well controlled on current medications. Patient tolerating diet wellm no concerns at this time with N/V/D/C Pain appears well controlled, no changes to be made for this at this time. Patient currently on [place], pain well controlled Lovenox for DVT prophylaxis. Nurse to call with questions or concerns. Awaiting placement. - Problems/Diagnosis (1) Hip fracture Problem: Acute (2) Hypertension Problem: Chronic (3) Hyperlipidemia Problem: Chronic (4) Chronic kidney disease Problem: Chronic (5) Hard of hearing Problem: Acute
[2019-08-16 07:04] LABS: Anion Gap 10.2 mmol/L (6.8-13.8); BUN/Creatinine Ratio 12.3 (9.0-21.6); Calcium * 7.7 mg/dL (7.9-10.9); Carbon Dioxide 27.3 mmol/L (24-32.6); Estimated Creat Clear 31.5; Potassium 4.5 mmol/L (3.4-4.6)
[2019-08-16] MEDS: CALCIUM CARBONATE/VITAMIN D3 1 TAB TABLET PO SCH (10:08)
[2019-08-16] MEDS: ACETAMINOPHEN 500 MG TABLET PO PRN (10:08)
[2019-08-16] MEDS: LISINOPRIL 10 MG TABLET PO SCH (10:08)
--- NOTE | 2019-08-16 10:27 | DS ---
(1) Hip fracture Problem: Acute (2) Hypertension Problem: Chronic (3) Hyperlipidemia Problem: Chronic (4) Chronic kidney disease Problem: Chronic (5) Hard of hearing Problem: Acute Date of Discharge:: 08/16/19 Hospital Course: 83-year-old male presented to the hospital with left hip pain following ground- level fall. X-ray showed at that time showed a displaced, slightly angulated left subcapital femoral neck fracture. Patient was taken back for repair by Dr. Tran which patient tolerated well. Patient had slight drop in his hemoglobin, acute blood anemia which stabilized. Initial hemoglobin is 12, down to 8.7. His vital signs have remained stable and his pain is well controlled with oral medications. Patient evaluated by PT/OT who recommended care home for increasing functional ability and transfers and help with his independence with his ADLs. No changes to his chronic medications. Patient accepted to SNF will continue PT and OT. Patient on Lovenox aspirin for DVT prophylaxis. Will send in pain medicine until able to follow-up with Dr. Tran. Weightbearing restrictions ordered. Procedures Performed: see notes below - Left femur repair Results and Findings: Lab Pending Results 08/10/19 10:46: WBC 8.0, RBC 3.74 L, Hgb 12.2 L, Hct 35.3 L, MCV 94.4, MCH 32.6 H, MCHC 34.6, RDW 12.7, Plt Count 171, MPV 8.7, Immature Gran % (Auto) 0.80 H, Immature Gran # (Auto) 0.06 H, Neutrophils % 74.6, Lymphocytes % 13.8 L, Monocytes % 7.8, Eosinophils % 2.6, Basophils % 0.4, Nucleated RBC % 0.0, Neutrophils # 5.9, Lymphocytes # 1.10 L, Monocytes # 0.6, Eosinophils # 0.2, Absolute Basophils 0.0 08/10/19 10:46: Sodium 133, Plasma Sodium 133, Potassium 4.4, Chloride 99, Carbon Dioxide 28.1, Anion Gap 10.3, BUN 16, Creatinine 1.90 H, Est GFR (Non-Af Amer) 36 L, BUN/Creatinine Ratio 8.4 L, Random Glucose 107, Calcium 8.6, Calcium Adj for Albumin 8.7, Total Bilirubin 0.6, AST 20, ALT 24, Alkaline Phosphatase 57, Total Protein 6.8, Albumin 3.5 08/10/19 10:46: PT 10.2, INR (Anticoag Therapy) 1.03, PTT ([place]) 23.1 L 08/10/19 11:15: Urine Color Pale yellow, Urine Appearance Clear, Urine pH 6.0, Ur Specific [place] 1.010, Urine Protein Negative, Urine Glucose (UA) Negative, Urine Ketones Negative, Urine Blood Negative, Urine Nitrate Negative, Urine Bilirubin Negative, Urine Urobilinogen Normal, Ur Leukocyte Esterase Negative, Urine RBC None seen, Urine WBC None seen, Ur Epithelial Cells None seen, Amorphous Sediment Moderate - 2+ H, Urine Bacteria Trace, Urine Culture Comments Culture to follow 08/10/19 11:23: SARS-CoV-2 (PCR) Not detected 08/11/19 07:10: Sodium 134, Plasma Sodium 134, Potassium 4.8 H, Chloride 103, Carbon Dioxide 26.4, Anion Gap 9.4, BUN 23, Creatinine 1.62 H, Est GFR (Non-Af Amer) 44 L D, BUN/Creatinine Ratio 14.2, Random Glucose 102, Calcium 8.0 08/11/19 12:53: Pathology Specimen Spec to ath 08/12/19 06:10: WBC 9.1, RBC 2.89 L, Hgb 9.3 L, Hct 27.4 L, MCV 94.8, MCH 32.2 H, MCHC 33.9, RDW 12.9, Plt Count 122 L, MPV 8.4 08/12/19 06:10: Sodium 131 L, Plasma Sodium 131, Potassium 4.7 H, Chloride 100, Carbon Dioxide 27.6, Anion Gap 8.1, BUN 17, Creatinine 1.51 H, Est GFR (Non-Af Amer) 47 L, BUN/Creatinine Ratio 11.3, Random Glucose 129 H, Calcium 7.7 L 08/13/19 06:15: WBC 9.8, RBC 2.72 L, Hgb 8.9 L, Hct 26.1 L, MCV 96.0, MCH 32.7 H, MCHC 34.1, RDW 12.9, Plt Count 142 L, MPV 9.5, Immature Gran % (Auto) 0.40, Immature Gran # (Auto) 0.04 H, Neutrophils % 75.3 H, Lymphocytes % 11.3 L, Monocytes % 9.9 H, Eosinophils % 2.9, Basophils % 0.2, Nucleated RBC % 0.0, Neutrophils # 7.4 H, Lymphocytes # 1.10 L, Monocytes # 1.0, Eosinophils # 0.3, Absolute Basophils 0.0 08/13/19 06:15: Sodium 129 L, Plasma Sodium 129 L, Potassium 4.4, Chloride 98, Carbon Dioxide 26.9, Anion Gap 8.5, BUN 17, Creatinine 1.58 H, Est GFR (Non-Af Amer) 45 L, BUN/Creatinine Ratio 10.8, Random Glucose 111 H, Calcium 8.1, Calcium Adj for Albumin 8.9, Total Bilirubin 1.2 H, AST 54 H, ALT 22, Alkaline Phosphatase 48 L, Total Protein 5.9 L, Albumin 2.6 L 08/14/19 06:10: WBC 8.7, RBC 2.68 L, Hgb 8.7 L, Hct 25.3 L, MCV 94.4, MCH 32.5 H, MCHC 34.4, RDW 12.6, Plt Count 156, MPV 9.1, Immature Gran % (Auto) 0.60 H, Immature Gran # (Auto) 0.05 H, Neutrophils % 78.2 H, Lymphocytes % 8.5 L, Monocytes % 10.4 H, Eosinophils % 2.2, Basophils % 0.1, Nucleated RBC % 0.0, Neutrophils # 6.8 H, Lymphocytes # 0.74 L, Monocytes # 0.9, Eosinophils # 0.2, Absolute Basophils 0.0 08/14/19 06:10: Sodium 127 L, Plasma Sodium 127 L, Potassium 4.4, Chloride 94 L, Carbon Dioxide 26.3, Anion Gap 11.1, BUN 19, Creatinine 1.49 H, Est GFR (Non-Af Amer) 48 L, BUN/Creatinine Ratio 12.8, Random Glucose 107, Calcium 8.2, Calcium Adj for Albumin 9.1, Total Bilirubin 1.2 H, AST 55 H, ALT 26, Alkaline Phosphatase 57, Total Protein 6.1 L, Albumin 2.5 L 08/15/19 06:05: Sodium 129 L, Plasma Sodium 129 L, Potassium 4.5, Chloride 95 L, Carbon Dioxide 27.4, Anion Gap 11.1, BUN 19, Creatinine 1.72 H, Est GFR (Non-Af Amer) 41 L, BUN/Creatinine Ratio 11.0, Random Glucose 111 H, Calcium 7.9 08/16/19 06:30: Sodium 129 L, Plasma Sodium 129 L, Potassium 4.5, Chloride 96 L, Carbon Dioxide 27.3, Anion Gap 10.2, BUN 20, Creatinine 1.63 H, Est GFR (Non-Af Amer) 43 L, BUN/Creatinine Ratio 12.3, Random Glucose 109, Calcium 7.7 L Discharge Location: Other Disposition: SNF Condition: Fair Level of Care: SNF Discharge Activity: Weight bearing Discharge Diet: General/regular food Skilled Nursing Therapy: Physical Therapy, Occupation Therapy Referrals: [facility] [Primary Care Provider] - Two Weeks Additional Patient Instructions (free text): Discharge to [facility] for SNF skilled care. PT and OT to evaluate and treat. Admit to [facility] for Skilled Medicare A services. Follow up Orthopedic Office appointment at [facility] on WednesdayAugust 28 at 2:00pm. Ortho plan: Due to the need for pain control, post-operative limited mobility, protection of the surgical site and joint, monitoring of the wound, and the management of chronic medical conditions, he requires continued inpatient care. Continue with physical and occupational therapy weightbearing as tolerated with anterior hip precautions. Continue with anticoagulation - he will need 2 more days of Lovenox, then followed by daily Aspirin 325 mg po. Continue bowel regimen. Will need 6 weeks with walker or assitive device to protect joint while ambulating during the recovery process. Keep incisional wound covered with dry gauze and tape, change dressing every 2-3 days as needed. No showering or bathing the incision. Continue ice to the hip as needed. Utilize Bautista hose on the left leg. Prescriptions (Any new or edited meds): Enoxaparin Sodium [Lovenox] 40 mg SC Q24H #2 disp.syrin Transmission Status: Received by [facility] HYDROcodone/ACETAMINOPHEN [[place] 5-325] 1 ea PO Q4H PRN #60 tab PRN Reason: Moderate Pain (Pain Scale 4-6) Transmission Status: Received by [facility] Complete Home Medications List: Complete Home Medication List: Calcium Carb/Vitamin D3/Vit K1 [Calcium-Vit D3-K1 650 mg Chew] 1 ea PO DAILY 08/10/19 Lisinopril [Zestril] 10 mg PO DAILY 08/10/19 Simvastatin 40 mg PO HS 08/10/19 Enoxaparin Sodium [Lovenox] 40 mg SC Q24H #2 disp.syrin 08/16/19 HYDROcodone/ACETAMINOPHEN [[place] 5-325] 1 ea PO Q4H PRN #60 tab 08/16/19 Forms: Patient Portal Registration
--- NOTE | 2019-08-16 10:47 | PN ---
Subjective - Date and Time Seen Date: 08/16/19 Time: 10:45 Subjective Narrative: Subjective: Reports minimal pain. Was able to walk in the room with therapy. Pain is tolerable. Voiding without any complications. No other concerns Physical exam: Alert and oriented to person, place and time Left lower extremity: Palpable dorsalis pedis pulse. Sensation grossly intact to light touch. Dressings were changed with some minimal serous drainage. There is bruising and swelling to the left thigh but not excessive. Able to flex and extend ankle and toes. Assessment: Postop day 5 status post left hip deborah-arthroplasty. Plan: Continue with physical and occupational therapy weightbearing as tolerated. Continue with anticoagulation - he will need 2 additional days of Lovenox followed by daily aspirin 325 mg. Pain control with goal to rely on oral medications. Continue bowel regimen. Will need 6 weeks with walker or assitive device to protect joint while ambulating during the recovery process. Discharge planning-keep wound covered with dry gauze and tape. Change every 2 to 3 days as needed. No showering or bathing the wound. Continue ice to the hip as needed. Utilize compression stocking on the left leg. Follow-up in 2 to 3 weeks with orthopedics. Objective - Vitals Vitals: Last Vital Signs Temp 36.7 C 08/16/19 06:55 Pulse 90 08/16/19 10:08 Resp 20 08/16/19 06:55 BP 158/52 H 08/16/19 10:08 Pulse Ox 96 08/16/19 06:55 - Abnormal Lab Findings Abnormal Lab Findings: Abnormal Lab Results 08/16/19 Range/Units 06:30 Sodium 129 L (132-142) mmol/L Plasma Sodium 129 L (130-142) mmol/L Chloride 96 L (97-106) mmol/L Creatinine 1.63 H (0.4-1.4) mg/dL Est GFR (Non-Af Amer) 43 L (60-130) mL/min Calcium 7.7 L (7.9-10.9) mg/dL Cauti Physician Documentation - Urinary Catheter Management Coude Urethral Indwelling: No Date of Insertion: 08/10/19 Time of Insertion: 11:21 Date of Removal: 08/12/19 Time of Removal: 05:00 Assessment/Plan - Problems/Diagnosis (1) Subcapital fracture of left hip Problem: Acute Qualifiers: Encounter type: subsequent encounter Fracture type: closed Fracture healing: with routine healing Qualified Code(s): S72.012D - Unspecified intracapsular fracture of left femur, subsequent encounter for closed fracture with routine healing
[2019-08-16] MEDS: ENOXAPARIN SODIUM 40 MG/0.4 ML SYRG SC SCH (12:40)
[2019-08-16 12:59] VITALS: BP 131/49
== END 2019-08-16 13:20 | DRG 470 ==
LOC: ER 10:11 → MS 11:26
PROVIDERS: ADMIT Family Medicine; ATTEND Family Medicine
CPT/HCPCS: 36415; 71010; 71045; 73502; 80048; 80053; 81001; 85025; 85027; 85610; 85730; 87086; 88305; 88311; 88888; 93005; 96374; 97110; 97116; 97161; 97165; 97530; 97535; 99283; 99285